=== PATIENT | female | born 1965 | race Caucasian/White ===

== ENCOUNTER → 2016-06-30 | Outpatient (CLI) | payer MEDICAID ==
[~2016-06-30] MED LIST: ANTIVERT GENERI25 MG PO; AZITHROMYCIN250 MG PO; BACLOFEN20 MG PO; BAYER ASPIRIN325 MG PO; CARVEDILOL6.25 MG PO; CEFDINIR300 M1 PO; CHEWABLE ASPIRI81 MG PO; CITALOPRAM20 M1 PO; CITALOPRAM20 MG PO; CLONAZEPAM0.5 M1 PO; DAILY VITE1 TA2 PO; DICLOFENAC 50MG50 MG PO; DIFLUCAN100 MG PO; FERROUS SULFAT325 M2 PO; FISH OIL1000 MG PO; HYDROCODONE-APA1 TA1 PO; JANUVIA100 MG PO; LISINOPRIL 10MG10 MG PO; LORTAB 5/500 501 TAB PO; MACROBID100 M3 PO; METFORMIN500 MG PO; METRONIDAZOLE250 MG PO; MOBIC15 MG PO; MULTI VITAMINS1 TAB PO; NAPROXEN SODIU500 MG PO; NIASPAN500 MG PO; NORCO 325 MG-51 TAB PO; PERCOCET 325 MG1 TA3 PO; PHENERGAN25 M3 PO; PLAVIX 75MG TAB75 MG PO; PRAVACHOL 40MG40 MG PO; PRILOSEC20 M1 PO; PROMETHAZINE D473 ML PO; ROBAXIN 500 MG500 MG PO; SIMVASTATIN80 MG PO; TESSALON PERLE100 M1 PO; TRICOR 145 MG145 MG PO; ULTRAM 50 MG TA50 MG PO; ULTRAM50 MG PO; VENLAFAXINE HYD75 M1 PO; ZITHROMAX Z PA250 MG PO
--- NOTE | 2016-06-30 12:16 | RADIOLOGY REPORT PS360 ---
ELBOW-LT-3 VIEWS HISTORY: LEFT ELBOW PAIN ORDERING PHYSICIAN: Cullen Hastings MD PATIENT AGE: 50 years COMPARISON: None FINDINGS: There is mild hypertrophic changes along the medial aspect of the coronoid process which is developed from 08/05/2012 consistent with mild osteoarthritic change. No fracture or dislocation. No displaced fat pad. IMPRESSION: Mild spurring along the coronoid process suggesting mild osteoarthritic change
== END ==
LOC: RAD 11:05
DX: M25.552 Pain in left hip (principal)